=== PATIENT | male | born 1950 | race Caucasian/White ===

== ENCOUNTER 2017-06-16 21:39 | Emergency (ER) | END 2017-06-17 02:52 | disposition home or self-care (01) ==

== ENCOUNTER 2017-08-04 12:27 | Emergency (ER) | END 2017-08-04 20:04 | disposition home or self-care (01) ==

== ENCOUNTER 2017-09-10 20:12 | Inpatient (IN) | END 2017-09-13 19:55 | disposition home or self-care (01) | DRG 378 ==